=== PATIENT | female | born 1955 | race Caucasian/White ===

== ENCOUNTER → 2024-08-04 06:10 | Day surgery (SDC) | payer BC, SELFPAY | LOC: GI 06:10 | PROVIDERS: ATTENDING PHYSICIAN Surgery | DX: Z12.11 Encounter for screening for malignant neoplasm of colon (principal); D12.0 Benign neoplasm of cecum; Z80.0 Family history of malignant neoplasm of digestive organs | CPT/HCPCS: 45380; 88305 ==

== ENCOUNTER → 2025-10-07 12:35 | Outpatient (REF) | payer BC, SELFPAY | LOC: HWRAD 12:35 | PROVIDERS: ATTENDING PHYSICIAN Family Medicine | DX: Z15.89 Genetic susceptibility to other disease (principal); Z15.09 Genetic susceptibility to other malignant neoplasm | CPT/HCPCS: 76775 ==